=== PATIENT | female | born 1990 | race Caucasian/White ===

== ENCOUNTER 2018-04-11 08:23 | Inpatient (IN) | payer MEDICAID ==
[~2018-04-11] VITALS: Ht 154.9 cm; Wt 59.0 kg
[2018-04-11] MEDS ORDERED: normal saline 1000ML IV soln IV ONE (09:10)
[2018-04-11 10:26] LABS: BASOPHILS % (AUTO) 0.4 % (0-1); EOSINOPHILS # (AUTO) 0.2 X10'3 (0-0.9); EOSINOPHILS % (AUTO) 1.6 % (0-6); HEMATOCRIT 41.8 % (35.0-45.0); HEMOGLOBIN 13.7 g/dl (12.0-16.0); LYMPHOCYTES # (AUTO) 2.3 X10'3 (1.1-4.8); LYMPHOCYTES % (AUTO) 23.8 % (21-51); MEAN CORPUSCULAR HEMOGLOBIN 28.6 PG (27.0-31.0); MEAN CORPUSCULAR HGB CONC 32.7 % (33.0-36.5); MEAN CORPUSCULAR VOLUME 87.5 FL (78-98); MEAN PLATELET VOLUME 7.7 FL (7.4-10.4); MONOCYTES # (AUTO) 0.4 X10'3 (0-0.9); MONOCYTES % (AUTO) 4.6 % (2-12); NEUTROPHILS # (AUTO) 6.7 X10'3 (1.8-7.7); NEUTROPHILS % (AUTO) 69.6 % (42-75); PLATELET COUNT 411 X10'3 (140-440); RED BLOOD COUNT 4.77 X10'6 (4.20-5.60); RED CELL DISTRIBUTION WIDTH 13.8 % (11.5-14.5); WHITE BLOOD COUNT 9.6 X10'3 (4.5-11.0)
[2018-04-11 10:43] LABS: ALANINE AMINOTRANSFERASE 28 U/L (12-78); ALBUMIN/GLOBULIN RATIO 0.8 (1.1-1.5); ALKALINE PHOSPHATASE 67 IU/L (46-116); ANION GAP 9 (8-16); ASPARTATE AMINO TRANSFERASE 18 U/L (10-37); BILIRUBIN,TOTAL 0.3 MG/DL (0.1-1.0); BLOOD UREA NITROGEN 7 MG/DL (7-18); BUN/CREATININE RATIO 10.4 (6.6-38.0); CALCIUM 8.6 MG/DL (8.5-10.1); CHLORIDE 103 MMOL/L (99-107); CREATININE 0.67 MG/DL (0.40-0.90); GLUCOSE 150 MG/DL (70-104); MAGNESIUM 1.5 MG/DL (1.5-2.4); PHOSPHORUS 2.9 MG/DL (2.3-4.5); POTASSIUM 3.4 MMOL/L (3.5-5.1); SODIUM 141 MMOL/L (135-145); TOTAL CARBON DIOXIDE 28.9 MMOL/L (24-32); TOTAL PROTEIN 6.8 G/DL (6.4-8.2); eGFR > 90 ML/MIN
[2018-04-11] MEDS ORDERED: methylPREDNISolone sod succ 125mg/2ml vial IV ONE (12:45)
[2018-04-11] MEDS ORDERED: ondansetron/PF 4mg/2ml inj IV PRN ×2 (13:20→14:50)
[2018-04-11] MEDS ORDERED: acetaminophen 325mg tablet PO PRN ×3 (13:20→14:50)
[2018-04-11] MEDS ORDERED: mag hydrox/Alum hydrox/simeth 30ml oral suspension PO PRN ×2 (13:20→14:50)
[2018-04-11] MEDS ORDERED: magnesium hydroxide 30ml (MOM) UD suspension PO PRN ×2 (13:20→14:50)
[2018-04-11 14:42] LABS: CLARITY,URINE CLEAR (Clear); COLOR,URINE YELLOW (Yellow); GLUCOSE, URINE NEGATIVE (Neg); KETONES,URINE NEGATIVE (Neg); LEUKOCYTE ESTERASE ,URINE NEGATIVE (Neg); NITRITES, URINE NEGATIVE (Neg); OCCULT BLOOD,URINE NEGATIVE (Neg); PH,URINE 7.5 (4.8-8.0); PROTEIN,URINE NEGATIVE (Neg); UROBILINOGEN,URINE 0.2 E.U/dL (0.2-1.0)
[2018-04-11 14:43] LABS: UA COLLECTION TYPE CLN CATCH MIDSTREAM
[2018-04-11] MEDS ORDERED: potassium Cl 20 mEq SR tablet PO PRN (14:50)
[2018-04-11] MEDS ORDERED: potassium Cl 40MEQ/NS 500ml 500 ML IV PRN ×2 (14:50)
[2018-04-11] MEDS ORDERED: magnesium 1gm/100ml D5W IVPB 100 ML IV PRN (14:50)
[2018-04-11] MEDS ORDERED: magnesium 4gm in 100ml NS 100 ML IV PRN (14:50)
[2018-04-11] MEDS ORDERED: magnesium Cl slow-release 64mg tablet PO PRN (14:50)
[2018-04-11 14:54] LABS: URINE AMPHETAMINE SCREEN NEGATIVE (Neg); URINE BARBITUATE SCREEN NEGATIVE (Neg); URINE BENZODIAZEPINES SCREEN NEGATIVE (Neg); URINE CANNABINOID SCREEN POSITIVE (Neg); URINE COCAINE SCREEN NEGATIVE (Neg); URINE METHADONE SCREEN NEGATIVE (Neg); URINE OPIATE SCREEN NEGATIVE (Neg); URINE PHENCYCLIDINE SCREEN NEGATIVE (Neg)
[2018-04-11] MEDS: potassium Cl 20 mEq SR tablet PO PRN ×2 (16:29→20:23)
[2018-04-11] MEDS ORDERED: pneumococcal 23-VAL P-sac vacc 25 mcg/0.5ml vial IMVAC ONE (17:20)
[2018-04-11] MEDS: amox tr/potassium clavulanate 875/125mg TAB PO SCH (17:54)
[2018-04-11 18:00] VITALS: BP 124/95
[2018-04-11 20:00] VITALS: BP_SYST 100; BP_SYST 107; BP_SYST 110; BP_SYST 99; BP_DIAS 65; BP_DIAS 67; BP_DIAS 68; BP_DIAS 72
[2018-04-11] MEDS ORDERED: heparin, porcine 5000 units/ml vial SQ SCH (20:00)
[2018-04-11] MEDS: morphine 2 MG/ML inj. syringe IV PRN (21:26)
[2018-04-11 22:00] VITALS: BP 101/76
[2018-04-12] MEDS: potassium Cl 20 mEq SR tablet PO PRN (01:07)
[2018-04-12] MEDS: morphine 2 MG/ML inj. syringe IV PRN ×4 (05:00→19:12)
[2018-04-12 06:00] VITALS: BP 104/69
[2018-04-12 07:08] LABS: HEMATOCRIT 39.8 % (35.0-45.0); MEAN CORPUSCULAR HEMOGLOBIN 28.5 PG (27.0-31.0); MEAN CORPUSCULAR HGB CONC 32.7 % (33.0-36.5); MEAN CORPUSCULAR VOLUME 87.1 FL (78-98); MEAN PLATELET VOLUME 8.1 FL (7.4-10.4); PLATELET COUNT 390 X10'3 (140-440); RED BLOOD COUNT 4.57 X10'6 (4.20-5.60); RED CELL DISTRIBUTION WIDTH 13.8 % (11.5-14.5); WHITE BLOOD COUNT 18.5 X10'3 (4.5-11.0)
[2018-04-12 07:38] LABS: ALANINE AMINOTRANSFERASE 29 U/L (12-78); ALBUMIN 2.9 G/DL (3.4-5.0); ALBUMIN/GLOBULIN RATIO 0.8 (1.1-1.5); ALKALINE PHOSPHATASE 53 IU/L (46-116); ANION GAP 11 (8-16); ASPARTATE AMINO TRANSFERASE 12 U/L (10-37); BILIRUBIN,TOTAL 0.2 MG/DL (0.1-1.0); BLOOD UREA NITROGEN 7 MG/DL (7-18); BUN/CREATININE RATIO 13.5 (6.6-38.0); CALCIUM 8.8 MG/DL (8.5-10.1); CHLORIDE 107 MMOL/L (99-107); CREATININE 0.52 MG/DL (0.40-0.90); GLUCOSE 118 MG/DL (70-104); MAGNESIUM 1.6 MG/DL (1.5-2.4); POTASSIUM 4.1 MMOL/L (3.5-5.1); SODIUM 142 MMOL/L (135-145); TOTAL CARBON DIOXIDE 24.5 MMOL/L (24-32); TOTAL PROTEIN 6.5 G/DL (6.4-8.2); eGFR > 90 ML/MIN
[2018-04-12 08:00] VITALS: BP_SYST 112; BP_SYST 114; BP_SYST 117; BP_DIAS 69; BP_DIAS 79
[2018-04-12] MEDS ORDERED: methylPREDNISolone sod succ 125mg/2ml vial IV SCH (08:00)
[2018-04-12] MEDS: K and/or MAG REPLACEMENT MC SCH (08:00)
[2018-04-12 08:43] LABS: PLATELET ESTIMATE NORMAL; TOTAL CELLS COUNTED 100
[2018-04-12] MEDS: amox tr/potassium clavulanate 875/125mg TAB PO SCH ×2 (08:44→17:51)
[2018-04-12] MEDS: enoxaparin 40mg/0.4ml syringe SQ SCH (08:46)
[2018-04-12] MEDS ORDERED: gadopentetate dimeglumine 7.5 MMOL/15 ML syringe ONE (09:17)
[2018-04-12 10:00] VITALS: BP_SYST 112; BP_SYST 114; BP_SYST 117; BP_DIAS 69; BP_DIAS 79
[2018-04-12] MEDS ORDERED: NO HOME MEDS (10:38)
[2018-04-12] MEDS: LORazepam 1 MG tablet PO PRN ×2 (11:29→19:12)
[2018-04-12 13:10] LABS: URINE HCG NEGATIVE (NEG)
[2018-04-12] MEDS ORDERED: methylPREDNISolone sod succ 125mg/2ml vial IV ONE (14:50)
[2018-04-12 17:00] VITALS: BP 110/62
[2018-04-12 18:00] VITALS: BP 115/72
[2018-04-12 22:00] VITALS: BP_SYST 115; BP_SYST 120; BP_SYST 128; BP_SYST 139; BP_DIAS 72; BP_DIAS 73; BP_DIAS 75; BP_DIAS 81
[2018-04-12] MEDS: temazepam 15mg capsule PO PRN (22:04)
[2018-04-13] MEDS: morphine 2 MG/ML inj. syringe IV PRN ×5 (00:29→20:11)
[2018-04-13] MEDS: LORazepam 1 MG tablet PO PRN ×4 (00:29→20:11)
[2018-04-13 05:48] VITALS: BP_SYST 118; BP_SYST 121; BP_DIAS 62; BP_DIAS 72
[2018-04-13 06:00] VITALS: BP 118/62
[2018-04-13] MEDS: K and/or MAG REPLACEMENT MC SCH (07:43)
[2018-04-13] MEDS: amox tr/potassium clavulanate 875/125mg TAB PO SCH ×2 (08:18→17:43)
[2018-04-13] MEDS: enoxaparin 40mg/0.4ml syringe SQ SCH (08:19)
[2018-04-13] MEDS ORDERED: magnesium 2GM in 50ml NS 50 ML IV PRN (08:23)
[2018-04-13] MEDS ORDERED: methylPREDNISolone sod succ 125mg/2ml vial IV SCH (09:40)
[2018-04-13 10:00] VITALS: BP_SYST 116; BP_SYST 117; BP_SYST 122; BP_DIAS 67; BP_DIAS 70; BP_DIAS 90
[2018-04-13] MEDS: methylPREDNISolone sod succ 1,000 MG in normal saline 100ml IV soln 100 ML IV SCH (11:14)
[2018-04-13 11:18] LABS: BASOPHILS # (AUTO) 0.1 X10'3 (0-0.2); BASOPHILS % (AUTO) 0.3 % (0-1); EOSINOPHILS % (AUTO) 0 % (0-6); HEMATOCRIT 38.9 % (35.0-45.0); HEMOGLOBIN 12.5 g/dl (12.0-16.0); LYMPHOCYTES # (AUTO) 1.2 X10'3 (1.1-4.8); LYMPHOCYTES % (AUTO) 5.5 % (21-51); MEAN CORPUSCULAR HEMOGLOBIN 28.1 PG (27.0-31.0); MEAN CORPUSCULAR HGB CONC 32.1 % (33.0-36.5); MEAN CORPUSCULAR VOLUME 87.6 FL (78-98); MEAN PLATELET VOLUME 8.5 FL (7.4-10.4); MONOCYTES # (AUTO) 0.5 X10'3 (0-0.9); MONOCYTES % (AUTO) 2.6 % (2-12); NEUTROPHILS # (AUTO) 19.4 X10'3 (1.8-7.7); NEUTROPHILS % (AUTO) 91.6 % (42-75); PLATELET COUNT 391 X10'3 (140-440); RED BLOOD COUNT 4.44 X10'6 (4.20-5.60); RED CELL DISTRIBUTION WIDTH 13.9 % (11.5-14.5); WHITE BLOOD COUNT 21.2 X10'3 (4.5-11.0)
[2018-04-13 11:32] LABS: ALANINE AMINOTRANSFERASE 24 U/L (12-78); ALBUMIN 2.9 G/DL (3.4-5.0); ALBUMIN/GLOBULIN RATIO 0.8 (1.1-1.5); ALKALINE PHOSPHATASE 56 IU/L (46-116); ANION GAP 6 (8-16); ASPARTATE AMINO TRANSFERASE 12 U/L (10-37); BILIRUBIN,TOTAL 0.1 MG/DL (0.1-1.0); BLOOD UREA NITROGEN 10 MG/DL (7-18); BUN/CREATININE RATIO 18.9 (6.6-38.0); CALCIUM 9.3 MG/DL (8.5-10.1); CHLORIDE 104 MMOL/L (99-107); CREATININE 0.53 MG/DL (0.40-0.90); GLUCOSE 126 MG/DL (70-104); MAGNESIUM 1.6 MG/DL (1.5-2.4); POTASSIUM 3.3 MMOL/L (3.5-5.1); SODIUM 139 MMOL/L (135-145); TOTAL PROTEIN 6.5 G/DL (6.4-8.2); eGFR > 90 ML/MIN
[2018-04-13 18:30] VITALS: BP 110/62
[2018-04-13 20:00] VITALS: BP 110/62
[2018-04-13] MEDS: temazepam 15mg capsule PO PRN (20:31)
[2018-04-13 22:00] VITALS: BP_SYST 120; BP_SYST 128; BP_SYST 129; BP_DIAS 72; BP_DIAS 75; BP_DIAS 81
[2018-04-14 06:00] VITALS: BP 107/59
[2018-04-14 08:00] VITALS: BP_SYST 111; BP_SYST 131; BP_DIAS 79; BP_DIAS 83; BP_DIAS 86
[2018-04-14] MEDS: methylPREDNISolone sod succ 1,000 MG in normal saline 100ml IV soln 100 ML IV SCH (08:00)
[2018-04-14] MEDS: K and/or MAG REPLACEMENT MC SCH (08:00)
[2018-04-14] MEDS: morphine 2 MG/ML inj. syringe IV PRN ×3 (08:01→20:25)
[2018-04-14] MEDS: amox tr/potassium clavulanate 875/125mg TAB PO SCH ×2 (08:01→18:14)
[2018-04-14] MEDS: enoxaparin 40mg/0.4ml syringe SQ SCH (08:02)
[2018-04-14 08:19] LABS: BASOPHILS # (AUTO) 0.1 X10'3 (0-0.2); BASOPHILS % (AUTO) 0.4 % (0-1); EOSINOPHILS % (AUTO) 0 % (0-6); HEMATOCRIT 39.2 % (35.0-45.0); HEMOGLOBIN 12.6 g/dl (12.0-16.0); LYMPHOCYTES # (AUTO) 1.6 X10'3 (1.1-4.8); LYMPHOCYTES % (AUTO) 9.4 % (21-51); MEAN CORPUSCULAR HEMOGLOBIN 28.4 PG (27.0-31.0); MEAN CORPUSCULAR HGB CONC 32.2 % (33.0-36.5); MEAN CORPUSCULAR VOLUME 88.2 FL (78-98); MEAN PLATELET VOLUME 8.6 FL (7.4-10.4); MONOCYTES # (AUTO) 0.7 X10'3 (0-0.9); MONOCYTES % (AUTO) 4.1 % (2-12); NEUTROPHILS # (AUTO) 14.5 X10'3 (1.8-7.7); NEUTROPHILS % (AUTO) 86.1 % (42-75); PLATELET COUNT 371 X10'3 (140-440); RED BLOOD COUNT 4.45 X10'6 (4.20-5.60); RED CELL DISTRIBUTION WIDTH 13.5 % (11.5-14.5); WHITE BLOOD COUNT 16.8 X10'3 (4.5-11.0)
[2018-04-14 08:27] LABS: ALANINE AMINOTRANSFERASE 24 U/L (12-78); ALBUMIN 2.9 G/DL (3.4-5.0); ALBUMIN/GLOBULIN RATIO 0.9 (1.1-1.5); ALKALINE PHOSPHATASE 44 IU/L (46-116); ANION GAP 8 (8-16); ASPARTATE AMINO TRANSFERASE 9 U/L (10-37); BILIRUBIN,TOTAL 0.1 MG/DL (0.1-1.0); BLOOD UREA NITROGEN 13 MG/DL (7-18); BUN/CREATININE RATIO 29.5 (6.6-38.0); CALCIUM 8.9 MG/DL (8.5-10.1); CHLORIDE 105 MMOL/L (99-107); CREATININE 0.44 MG/DL (0.40-0.90); GLUCOSE 98 MG/DL (70-104); MAGNESIUM 1.9 MG/DL (1.5-2.4); POTASSIUM 3.9 MMOL/L (3.5-5.1); SODIUM 143 MMOL/L (135-145); TOTAL CARBON DIOXIDE 30.4 MMOL/L (24-32); TOTAL PROTEIN 6.3 G/DL (6.4-8.2); eGFR > 90 ML/MIN
[2018-04-14 10:00] VITALS: BP 117/76
[2018-04-14] MEDS: LORazepam 1 MG tablet PO PRN ×3 (10:17→20:24)
[2018-04-14 18:00] VITALS: BP 125/66
[2018-04-14] MEDS ORDERED: lactobacillus rhamnosus 10,000 MMU CELLS/CAPSULE PO SCH (20:00)
[2018-04-14 22:00] VITALS: BP 100/58
[2018-04-14] MEDS: temazepam 15mg capsule PO PRN (22:21)
[2018-04-17 07:17] LABS: ANTINUCLEAR ANTIBODIES Negative (Negative)
== END 2018-04-14 23:55 | disposition left against medical advice (07) | DRG 43 ==
LOC: ER 08:24 → ED HOLD 13:20 → ORTHO 4S 15:51
PROVIDERS: ADMIT Internal Medicine; ATTEND Family Medicine
PROC: 3E0234Z Introduction of Serum, Toxoid and Vaccine into Muscle, Percutaneous Approach (ICD-10-PCS; principal; 2018-04-12)
DX: G35 Multiple sclerosis (principal); R15.9 Full incontinence of feces; Z53.21 Procedure and treatment not carried out due to patient leaving prior to being seen by health care provider; J32.9 Chronic sinusitis, unspecified; F12.10 Cannabis abuse, uncomplicated; R32 Unspecified urinary incontinence; F17.200 Nicotine dependence, unspecified, uncomplicated; Z23 Encounter for immunization; Z79.899 Other long term (current) drug therapy
CPT/HCPCS: 36415; 70553; 80053; 80305; 81003; 81025; 82607; 83605; 83735; 84100; 84145; 84443; 85025; 86038; 87040; 87070; 90732; 92616; 96361; 96374; 97116; 97162; 97530; 99285; A9579; G0378; J1650; J2270; J2930; J7030

== ENCOUNTER 2018-05-17 18:13 | Inpatient (IN) | payer MEDICAID ==
[~2018-05-17] VITALS: Ht 152.4 cm; Wt 64.2 kg
[~2018-05-17 18:13] MED LIST: NO HOME MEDS
[2018-05-17] MEDS ORDERED: normal saline 1000ml 1,000 ML IVB ONE (19:35)
[2018-05-17 20:05] LABS: EOSINOPHILS % (AUTO) 0.5 % (0-6); HEMOGLOBIN 14.3 g/dl (12.0-16.0); LYMPHOCYTES # (AUTO) 1.9 X10'3 (1.1-4.8)
[2018-05-17 20:08] LABS: BASOPHILS # (AUTO) 0.1 X10'3 (0-0.2); BASOPHILS % (AUTO) 0.6 % (0-1); HEMATOCRIT 44.8 % (35.0-45.0); LYMPHOCYTES % (AUTO) 18.7 % (21-51); MEAN CORPUSCULAR HEMOGLOBIN 28.2 PG (27.0-31.0); MEAN CORPUSCULAR HGB CONC 31.8 % (33.0-36.5); MEAN CORPUSCULAR VOLUME 88.7 FL (78-98); MEAN PLATELET VOLUME 8.3 FL (7.4-10.4); MONOCYTES # (AUTO) 0.4 X10'3 (0-0.9); MONOCYTES % (AUTO) 4.2 % (2-12); NEUTROPHILS # (AUTO) 7.6 X10'3 (1.8-7.7); PLATELET COUNT 453 X10'3 (140-440); RED BLOOD COUNT 5.06 X10'6 (4.20-5.60); RED CELL DISTRIBUTION WIDTH 13.9 % (11.5-14.5)
[2018-05-17 20:23] LABS: ALANINE AMINOTRANSFERASE 28 U/L (12-78); ALBUMIN 3.7 G/DL (3.4-5.0); ALKALINE PHOSPHATASE 63 IU/L (46-116); ANION GAP 11 (8-16); ASPARTATE AMINO TRANSFERASE 19 U/L (10-37); BILIRUBIN,TOTAL 0.2 MG/DL (0.1-1.0); BLOOD UREA NITROGEN 4 MG/DL (7-18); CALCIUM 9.3 MG/DL (8.5-10.1); CHLORIDE 102 MMOL/L (99-107); CREATININE 0.57 MG/DL (0.40-0.90); GLUCOSE 110 MG/DL (70-104); POTASSIUM 3.5 MMOL/L (3.5-5.1); SODIUM 138 MMOL/L (135-145); TOTAL CARBON DIOXIDE 25.2 MMOL/L (24-32); TOTAL PROTEIN 7.5 G/DL (6.4-8.2); eGFR > 90 ML/MIN
[2018-05-17 20:25] LABS: PROTHROMBIN TIME 10.4 SECONDS (9.0-12.0)
[2018-05-17] MEDS ORDERED: LIDOcaine 2% 10ml TOPICAL JELLY (Urojet) MM ONE (20:35)
[2018-05-17 21:00] LABS: URINE HCG NEGATIVE (NEG)
[2018-05-17] MEDS ORDERED: temazepam 15mg capsule PO PRN (21:00)
[2018-05-17 21:08] LABS: CLARITY,URINE SLIGHTLY CLOUDY (Clear); COLOR,URINE YELLOW (Yellow); GLUCOSE, URINE NEGATIVE (Neg); KETONES,URINE NEGATIVE (Neg); LEUKOCYTE ESTERASE ,URINE NEGATIVE (Neg); NITRITES, URINE NEGATIVE (Neg); OCCULT BLOOD,URINE LARGE (Neg); PROTEIN,URINE NEGATIVE (Neg); UA COLLECTION TYPE INDWELLING CATH; UROBILINOGEN,URINE 0.2 E.U/dL (0.2-1.0)
[2018-05-17 21:10] LABS: BACTERIA,URINE FEW /HPF (Neg); RBC,URINE 20-50 /HPF (0-2); SQUAMOUS EPITHELIAL CELL,UR FEW /LPF (FEW); WBC,URINE 0-4 /HPF (0-4)
[2018-05-17] MEDS ORDERED: NORMAL SALINE IV ONE (21:20)
[2018-05-17] MEDS ORDERED: morphine 4 MG/ML inj SYRINge IV ONE (21:20)
[2018-05-17] MEDS ORDERED: METHYLPREDNISOLONE SOD SUCC IV ONE (21:20)
[2018-05-17] MEDS ORDERED: methylPREDNISolone sod succ 125mg/2ml vial IV ONE (21:20)
[2018-05-17] MEDS ORDERED: normal saline 1000ml 1,000 ML IV SCH (22:39)
[2018-05-17] MEDS ORDERED: bisacodyl 10mg suppository rectal RC PRN (22:40)
[2018-05-17] MEDS ORDERED: acetaminophen 650mg rectal suppository RC PRN (22:40)
[2018-05-17] MEDS ORDERED: metoclopramide 5 mg/ml inj IV PRN (22:40)
[2018-05-17] MEDS ORDERED: diphenhydrAMINE 50 mg/ml inj IV PRN (22:40)
[2018-05-17] MEDS ORDERED: HYDROcodone/acetaminophen 10/325mg tab PO PRN (22:40)
[2018-05-17] MEDS ORDERED: acetaminophen 325mg tablet PO PRN ×2 (22:40)
[2018-05-17] MEDS ORDERED: magnesium hydroxide 30ml (MOM) UD suspension PO PRN (22:40)
[2018-05-17] MEDS ORDERED: mag hydrox/Alum hydrox/simeth 30ml oral suspension PO PRN (22:40)
[2018-05-17] MEDS ORDERED: HYDROmorphone 1 mg/ml syringe IV PRN (22:40)
[2018-05-17] MEDS ORDERED: ondansetron/PF 4mg/2ml inj IV PRN (22:40)
[2018-05-17] MEDS ORDERED: diphenhydrAMINE 25mg capsule PO PRN (22:40)
[2018-05-17 23:11] LABS: MAGNESIUM 1.8 MG/DL (1.5-2.4); PHOSPHORUS 3.1 MG/DL (2.3-4.5)
[2018-05-17 23:18] LABS: PARTIAL THROMBOPLASTIN TIME 29 SECONDS (22-32)
[2018-05-18 00:08] LABS: HEMOGLOBIN A1C 5.6 % (4.5-6.2)
--- NOTE | 2018-05-18 00:53 | NUR ---
report called to lebron escobedo
[2018-05-18 01:15] VITALS: BP 110/73
--- NOTE | 2018-05-18 01:27 | NUR ---
Assumed care report received from Robyn MASCORRO in the ER. Pt came up on a bed with her boyfriend at bedside.
[2018-05-18] MEDS: morphine 4 MG/ML inj SYRINge IV PRN ×2 (02:38→11:05)
--- NOTE | 2018-05-18 06:30 | NUR ---
Patient in room [id number]. I have received report from LUDWIN Maier and had the opportunity to ask questions and assume patient care.
[2018-05-18 06:42] LABS: BASOPHILS # (AUTO) 0.1 X10'3 (0-0.2); BASOPHILS % (AUTO) 0.6 % (0-1); EOSINOPHILS # (AUTO) 0.2 X10'3 (0-0.9); EOSINOPHILS % (AUTO) 1.8 % (0-6); HEMATOCRIT 40.1 % (35.0-45.0); HEMOGLOBIN 13.4 g/dl (12.0-16.0); LYMPHOCYTES # (AUTO) 3.4 X10'3 (1.1-4.8); LYMPHOCYTES % (AUTO) 34.9 % (21-51); MEAN CORPUSCULAR HGB CONC 33.4 % (33.0-36.5); MEAN CORPUSCULAR VOLUME 89.8 FL (78-98); MEAN PLATELET VOLUME 8.6 FL (7.4-10.4); MONOCYTES # (AUTO) 0.7 X10'3 (0-0.9); NEUTROPHILS # (AUTO) 5.3 X10'3 (1.8-7.7); NEUTROPHILS % (AUTO) 55.7 % (42-75); PLATELET COUNT 389 X10'3 (140-440); RED BLOOD COUNT 4.47 X10'6 (4.20-5.60); WHITE BLOOD COUNT 9.7 X10'3 (4.5-11.0)
[2018-05-18 06:47] LABS: ALANINE AMINOTRANSFERASE 25 U/L (12-78); ALBUMIN/GLOBULIN RATIO 0.9 (1.1-1.5); ALKALINE PHOSPHATASE 53 IU/L (46-116); ANION GAP 9 (8-16); ASPARTATE AMINO TRANSFERASE 15 U/L (10-37); BILIRUBIN,TOTAL 0.4 MG/DL (0.1-1.0); BLOOD UREA NITROGEN 5 MG/DL (7-18); BUN/CREATININE RATIO 10.4 (6.6-38.0); CALCIUM 8.5 MG/DL (8.5-10.1); CHLORIDE 106 MMOL/L (99-107); CREATININE 0.48 MG/DL (0.40-0.90); GLUCOSE 92 MG/DL (70-104); POTASSIUM 3.6 MMOL/L (3.5-5.1); SODIUM 141 MMOL/L (135-145); TOTAL CARBON DIOXIDE 25.6 MMOL/L (24-32); TOTAL PROTEIN 6.2 G/DL (6.4-8.2); eGFR > 90 ML/MIN
[2018-05-18 07:00] VITALS: BP 114/76
--- NOTE | 2018-05-18 07:02 | NUR ---
Problems reprioritized. Patient report given, questions answered & plan of care reviewed with Karly RN.
[2018-05-18] MEDS ORDERED: methylPREDNISolone sod succ 125mg/2ml vial IV SCH (08:00)
[2018-05-18] MEDS ORDERED: nicotine 21mg patch - 24 hr TD SCH (08:00)
[2018-05-18] MEDS ORDERED: docusate sod 100mg capsule PO SCH (08:00)
[2018-05-18] MEDS ORDERED: heparin, porcine 5000 units/ml vial SQ SCH (08:00)
[2018-05-18] MEDS ORDERED: methylPREDNISolone sod succ 1,000 MG in normal saline 100ml IV soln 100 ML IV SCH (08:00)
[2018-05-18 11:00] VITALS: BP 121/70
[2018-05-18] MEDS ORDERED: ALPRAZolam 0.5mg tablet PO PRN (14:25)
[2018-05-18] MEDS ORDERED: ALPRAZolam 0.5mg tablet PO ONE (14:25)
--- NOTE | 2018-05-18 15:00 | NUR ---
FC removed, tip intact. Pt milli well.
[2018-05-18] MEDS ORDERED: ALPRAZolam 0.25mg tablet PO ONE (16:00)
[2018-05-18] MEDS ORDERED: oxyCODONE/APAP 5-325mg tablet PO PRN (17:20)
--- NOTE | 2018-05-18 18:50 | NUR ---
Pt left AMA. Pt refused to sign AMA form. IV DC'd, tip intact. Pt ambulated w/sister to front lobby.
--- NOTE | 2018-05-18 18:53 | NUR ---
Called Dr Payton to inform pt left AMA.
--- NOTE | 2018-05-18 18:58 | NUR ---
Pt AMA'd while receiving report. Removed EJ IV with the assistance of Karly MASCORRO. Advised pt of reasons to stay, and pt still choose to AMA and refused to sign the AMA form. Dr Payton was advised.
[2018-05-18] MEDS ORDERED: pregabalin 75mg capsule PO SCH (20:00)
[2018-05-18] MEDS ORDERED: famotidine 20mg tablet PO SCH (21:00)
== END 2018-05-18 19:20 | disposition left against medical advice (07) | DRG 43 ==
LOC: ER 18:14 → ED HOLD 22:39 → SUR 3N 05-18 01:15
PROVIDERS: ADMIT Family Medicine; ATTEND Internal Medicine
DX: G35 Multiple sclerosis (principal); N31.9 Neuromuscular dysfunction of bladder, unspecified; G43.909 Migraine, unspecified, not intractable, without status migrainosus; G89.4 Chronic pain syndrome; I10 Essential (primary) hypertension; R33.9 Retention of urine, unspecified; M54.5 Low back pain; Z53.21 Procedure and treatment not carried out due to patient leaving prior to being seen by health care provider; R19.5 Other fecal abnormalities; F17.209 Nicotine dependence, unspecified, with unspecified nicotine-induced disorders; Z59.0 Homelessness; Z91.013 Allergy to seafood; Z79.899 Other long term (current) drug therapy; Z71.6 Tobacco abuse counseling
CPT/HCPCS: 36415; 74018; 80053; 81001; 81025; 82948; 83036; 83735; 83880; 84100; 85025; 85610; 85730; 87070; 96374; 99285; G0378; J1644; J2270; J2930; J7030

== ENCOUNTER 2019-05-29 12:19 | Emergency (ER) | payer MEDICAID ==
[~2019-05-29] VITALS: Ht 167.6 cm; Wt 59.1 kg
[2019-05-29] MEDS ORDERED: normal saline 1000ML IV soln IVB ONE (12:50)
[2019-05-29] MEDS ORDERED: ketorolac trometh. 30mg/ml inj. IV ONE (12:50)
[2019-05-29] MEDS ORDERED: morphine 4 MG/ML inj SYRINge IV PRN (12:50)
[2019-05-29] MEDS ORDERED: ondansetron/PF 4mg/2ml inj IV ONE (12:50)
[2019-05-29 13:15] LABS: BASOPHILS # (AUTO) 0.1 X10'3 (0-0.2); BASOPHILS % (AUTO) 0.8 % (0-1); EOSINOPHILS # (AUTO) 0.1 X10'3 (0-0.9); EOSINOPHILS % (AUTO) 0.9 % (0-6); HEMATOCRIT 43.1 % (35.0-45.0); HEMOGLOBIN 14.3 g/dl (12.0-16.0); LYMPHOCYTES # (AUTO) 2.5 X10'3 (1.1-4.8); LYMPHOCYTES % (AUTO) 24.7 % (21-51); MEAN CORPUSCULAR HEMOGLOBIN 28.3 PG (27.0-31.0); MEAN CORPUSCULAR HGB CONC 33.1 g/dL (33.0-36.5); MEAN CORPUSCULAR VOLUME 85.6 FL (78-98); MEAN PLATELET VOLUME 8.2 FL (7.4-10.4); MONOCYTES # (AUTO) 0.6 X10'3 (0-0.9); MONOCYTES % (AUTO) 5.9 % (2-12); NEUTROPHILS # (AUTO) 6.9 X10'3 (1.8-7.7); NEUTROPHILS % (AUTO) 67.7 % (42-75); PLATELET COUNT 394 X10'3 (140-440); RED BLOOD COUNT 5.04 X10'6 (4.20-5.60); WHITE BLOOD COUNT 10.2 X10'3 (4.5-11.0)
[2019-05-29 13:31] LABS: ALANINE AMINOTRANSFERASE 23 U/L (12-78); ALBUMIN 3.9 G/DL (3.4-5.0); ALBUMIN/GLOBULIN RATIO 1.1 (1.1-1.5); ALKALINE PHOSPHATASE 56 IU/L (46-116); ANION GAP 8 (8-16); ASPARTATE AMINO TRANSFERASE 20 U/L (10-37); BILIRUBIN,TOTAL 0.3 MG/DL (0.1-1.0); BLOOD UREA NITROGEN 6 MG/DL (7-18); BUN/CREATININE RATIO 11.1 (6.6-38.0); CALCIUM 9.1 MG/DL (8.5-10.1); CHLORIDE 104 MMOL/L (99-107); CREATININE 0.54 MG/DL (0.40-0.90); GLUCOSE 90 MG/DL (70-104); LIPASE 56 U/L (73-393); POTASSIUM 3.7 MMOL/L (3.5-5.1); SODIUM 139 MMOL/L (135-145); TOTAL CARBON DIOXIDE 26.8 MMOL/L (24-32); TOTAL PROTEIN 7.5 G/DL (6.4-8.2); eGFR > 90 ML/MIN
[2019-05-29 14:14] LABS: URINE HCG NEGATIVE (NEG)
[2019-05-29 14:16] LABS: CLARITY,URINE CLEAR (Clear); COLOR,URINE YELLOW (Yellow); GLUCOSE, URINE NEGATIVE (Neg); KETONES,URINE NEGATIVE (Neg); LEUKOCYTE ESTERASE ,URINE NEGATIVE (Neg); NITRITES, URINE NEGATIVE (Neg); OCCULT BLOOD,URINE NEGATIVE (Neg); PROTEIN,URINE NEGATIVE (Neg); UROBILINOGEN,URINE 0.2 E.U/dL (0.2-1.0)
[2019-05-29 14:17] LABS: UA COLLECTION TYPE STRAIGHT CATH
[2019-05-29 14:57] VITALS: BP 136/82
== END 2019-05-29 14:58 | disposition home or self-care (01) ==
LOC: ER 12:19
DX: R10.31 Right lower quadrant pain (principal); F17.200 Nicotine dependence, unspecified, uncomplicated; F12.90 Cannabis use, unspecified, uncomplicated
CPT/HCPCS: 36415; 74176; 80053; 81003; 81025; 83690; 85025; 96374; 96375; 99284; J1885; J2270; J2405; J7030